=== PATIENT | female | born 1960 | race Caucasian/White ===

== ENCOUNTER 2017-02-26 13:37 | Emergency (ER) | payer BC ==
[2017-02-26 13:48] VITALS: BP 179/102
[2017-02-26] MEDS ORDERED: Lidocaine 2% PF * 5 ML VIAL INJ ONE (14:04)
--- NOTE | 2017-02-26 15:05 | UC ---
Laceration HPI - HPI Summary HPI Summary: [employer]RS TRAV[employer]ER ACCIDENTLY WALKED INTO A SUPPORT POLE AT [facility]. NO LOC. NO NECK PAIN. NO FACIAL TENDERNESS. NO PAIN WITH EYE MOVEMENT OR CHANGE IN VISION. LACERATION TO LEFT EYEBROW. TETANUS 2009 - History Of Current Complaint Chief Complaint: UCLaceration Stated Complaint: HEAD LACERATION Time Seen by Provider: 02/26/17 13:45 Hx Obtained From: Patient Hx Last Menstrual Period: 2002 Laceration Location: Face - LEFT EYEBROW Mechanism Of Injury: Blunt Trauma Onset/Duration: Sudden Onset Pain Intensity: 0 Pain Scale Used: 0-10 Numeric Aggravating Factors: Nothing - Allergies/Home Medications Allergies/Adverse Reactions: Allergies Allergy/AdvReac Type Severity Reaction Status Date / Time No Known Allergies Allergy Verified 02/26/17 13:48 Home Medications: Home Medications Vitamin Supplements 1 dose PO BID 02/26/17 [History Confirmed 02/26/17] PMH/Surg Hx/FS Hx/Imm Hx Previously Healthy: Yes - Surgical History Surgical History: Yes Surgery Procedure, Year, and Place: tubal ligation. 2 leg vein surgeries L leg. - Family History Known Family History: Positive: None, Blood Disorder - blood cancers - Social History Occupation: Employed Full-time Lives: With Family Alcohol Use: Occasionally Substance Use Type: None Smoking Status (MU): Light Every Day Tobacco Smoker Type: Cigarettes Amount Used/How Often: 6-7 daily - Immunization History Most Recent Influenza Vaccination: jan 2015 Most Recent Tetanus Shot: 2008 Review of Systems Constitutional: Negative Skin: Other - LEFT EYEBROW LACERATION Eyes: Negative ENT: Negative Respiratory: Negative Cardiovascular: Negative Gastrointestinal: Negative Genitourinary: Negative Motor: Negative Neurovascular: Negative Musculoskeletal: Negative Neurological: Negative Psychological: Negative Is Patient Immunocompromised?: No All Other Systems Reviewed And Are Negative: Yes Physical Exam Triage Information Reviewed: Yes Appearance: Well-Appearing, No Pain Distress, Well-Nourished Vital Signs: Initial Vital Signs Temp 98.5 F 02/26/17 13:43 Pulse 79 02/26/17 13:43 Resp 20 02/26/17 13:43 BP 179/102 02/26/17 13:43 Vital Signs Reviewed: Yes Eye Exam: Normal ENT Exam: Normal ENT: Positive: Normal ENT inspection Dental Exam: Normal Neck exam: Normal Neck: Positive: Supple, Nontender, No Lymphadenopathy Respiratory Exam: Normal Respiratory: Positive: Chest non-tender, Lungs clear, Normal breath sounds, No respiratory distress, No accessory muscle use Cardiovascular Exam: Normal Cardiovascular: Positive: RRR, No Murmur, Pulses Normal Abdominal Exam: Normal Musculoskeletal Exam: Normal Neurological Exam: Normal Psychological Exam: Normal Skin: Positive: Other - LACERATION LEFT EYEBROW Laceration Repair - Laceration Repair 1 Description: Irregular Laceration Size After Repair: Length (cm) - 2, Width (mm) - 2, Depth (mm) - 3 Type Injection: Local Anesthesia Used: 2.0% Lido Cleansing Completed Via Routine Prep: Yes Irrigation With Pressure Irrigation Device: Yes Closure Material: Sutures - 3 Closure Method: Single Layer Suture Of: Skin Suture Type: Prolene Laceration Course/Dx - Differential Dx - Laceration/Wound Differental Diagnoses: Cellulitis, Laceration Provider Diagnoses: LACERATION LEFT EYEBROW WITH REPAIR Discharge - Discharge Plan Condition: Stable Disposition: HOME Patient Education Materials: Care For Your Stitches (ED), Facial Laceration (ED ) Referrals: Lesley Vargas [Primary Care Provider] - Additional Instructions: RETURN IN 6 TO 7 DAYS TO HAVE SUTURES REMOVED
== END 2017-02-26 14:50 | disposition home or self-care (01) ==
LOC: UCCORT 13:37
DX: S01.112A Laceration without foreign body of left eyelid and periocular area, initial encounter (principal); W22.8XXA Striking against or struck by other objects, initial encounter; Y92.9 Unspecified place or not applicable
CPT/HCPCS: 12011; 99211; G0463

== ENCOUNTER 2018-07-24 07:01 | Emergency (ER) | payer BC ==
[2018-07-24 07:20] VITALS: BP 142/100
--- NOTE | 2018-07-24 07:37 | UC ---
Eye Complaint HPI - HPI Summary HPI Summary: right eye redness x 1 day + clear / white drainage no eye pain , no change in vision - History of Current Complaint Chief Complaint: UCEye Stated Complaint: R EYE COMPLAINT Time Seen by Provider: 07/24/18 07:24 Hx Obtained From: Patient Hx Last Menstrual Period: yrs ?: No Onset/Duration: Gradual Onset, Lasting Days - 1, Still Present Timing: Constant Severity Initially: Moderate Severity Currently: Moderate Pain Intensity: 0 Pain Scale Used: 0-10 Numeric Location of Injury: Conjunctiva - right Aggravating Factor(s): Nothing Alleviating Factor(s): Nothing Associated Signs And Symptoms: Positive: Drainage (Purulent) - right eye. Negative: Photophobia, Vision Impairment Right, Vision Impairment Left, Fever, Swelling - Allergies/Home Medications Allergies/Adverse Reactions: Allergies Allergy/AdvReac Type Severity Reaction Status Date / Time No Known Allergies Allergy Verified 07/24/18 07:11 Home Medications: Home Medications Anastrozole [Arimidex] 1 mg PO DAILY 07/24/18 [History Confirmed 07/24/18] PMH/Surg Hx/FS Hx/Imm Hx Cancer History: Breast Cancer - Surgical History Surgical History: Yes Surgery Procedure, Year, and Place: tubal ligation. 2 leg vein surgeries L leg. RT KNEE MENISCUS; left foot. LT BREAST LUMPECTOMY MAR 2017 - Family History Known Family History: Positive: None, Blood Disorder - blood cancers - Social History Alcohol Use: Occasionally Substance Use Type: None Smoking Status (MU): Light Every Day Tobacco Smoker Type: Cigarettes Amount Used/How Often: 6-7 daily - Immunization History Most Recent Influenza Vaccination: jan 2015 Most Recent Tetanus Shot: 2008 Review of Systems All Other Systems Reviewed And Are Negative: Yes Constitutional: Positive: Negative Skin: Positive: Negative Eyes: Positive: Drainage, Eye Redness ENT: Positive: Negative Respiratory: Positive: Negative Is Patient Immunocompromised?: No Physical Exam Triage Information Reviewed: Yes Appearance: Well-Appearing, No Pain Distress, Well-Nourished Vital Signs: Initial Vital Signs Temp 98.3 F 07/24/18 07:13 Pulse 75 07/24/18 07:13 Resp 20 07/24/18 07:13 BP 142/100 07/24/18 07:13 Pulse Ox 100 07/24/18 07:13 Vital Signs Reviewed: Yes Eye Exam: Normal Eyes: Positive: Conjunctiva Inflamed - right eye, Discharge - right eye ENT: Positive: Normal ENT inspection, Hearing grossly normal, Pharynx normal Neck: Positive: Supple, Nontender, No Lymphadenopathy Respiratory: Positive: Chest non-tender, Lungs clear, Normal breath sounds Cardiovascular: Positive: RRR, No Murmur, Pulses Normal Skin Exam: Normal Eye Complaint Course/Dx - Differential Dx/Diagnosis Provider Diagnosis: Conjunctivitis Discharge - Sign-Out/Discharge Documenting (check all that apply): Patient Departure All imaging exams completed and their final reports reviewed: No Studies - Discharge Plan Condition: Stable Disposition: HOME Prescriptions: Tobramycin 0.3% OPHTH.PANCHITO* 1 drop RIGHT EYE Q4H #1 btl Patient Education Materials: Conjunctivitis (ED) Referrals: Lesley Vargas [Primary Care Provider] - If Needed - Billing Disposition and Condition Condition: STABLE Disposition: Home
== END 2018-07-24 07:33 | disposition home or self-care (01) ==
LOC: UCCORT 07:01
DX: H10.9 Unspecified conjunctivitis (principal); F17.210 Nicotine dependence, cigarettes, uncomplicated
CPT/HCPCS: 99212; G0463